=== PATIENT | female | born 1990 | race American Indian/Alaskan Native ===

== ENCOUNTER 2016-06-15 17:32 | Emergency (ER) | payer SELFPAY ==
[2016-06-15 17:38] VITALS: BP 116/72
--- NOTE | 2016-06-19 00:49 | ED Elopement Review ---
ED Pt Elopement review - Call Back decision Pt Call Back Decision: Pt to F/U with PMD
== END 2016-06-15 23:40 | disposition left against medical advice (07) ==
LOC: ED 17:32
DX: R11.2 Nausea with vomiting, unspecified (principal); R19.7 Diarrhea, unspecified; R42 Dizziness and giddiness; R10.9 Unspecified abdominal pain; R30.0 Dysuria; Z53.21 Procedure and treatment not carried out due to patient leaving prior to being seen by health care provider

== ENCOUNTER 2016-11-08 19:56 | Emergency (ER) | payer SELFPAY ==
[2016-11-08 20:07] VITALS: BP 118/72
[2016-11-08] MEDS ORDERED: DUONEB 0.5 MG-3 MG/3 ML SOLN IH ONE (20:19)
--- NOTE | 2016-11-09 00:34 | XRay Report ---
FINAL REPORT EXAM: XR CHEST ROUTINE 2V HISTORY: asthma, SOB COMPARISON: None available. FINDINGS:: Frontal and lateral views of the chest obtained. Cardiac silhouette is within normal limits. No focal consolidation or effusion. No pneumothorax. Visualized bony thorax is grossly intact. Posterior fusion the thoracic spine. IMPRESSION:: No acute findings.
--- NOTE | 2016-11-09 00:46 | Emergency Department Report ---
ED Asthma HPI - General Chief Complaint: Adult Asthma Stated Complaint: ASTHMA Time Seen by Provider: 11/09/16 00:21 Source: patient Mode of arrival: Ambulatory Limitations: No Limitations - History of Present Illness Initial Comments: This is a 26-year-old female well-nourished with nontoxic or ill in appearance with history of asthma that complains of wheezing and difficulty breathing since 2 days ago. Patient stated that she is diagnosed with a childhood asthma. Patient states has a primary care doctor Dr. Hutchinson but has not been seeing him since 5 months due to insurance purposes. Patient stated she is out of her inhaler and will like a refill prescription for inhaler albuterol. Patient denies any chest pain, shortness of breath, numbness, tingling, fever, chills, abdominal pain, headache, nausea or vomiting. Patient denies any allergies. He stated last menstrual period 11/06/2016. MD Complaint: "asthma attack", wheezing -: Gradual, days(s) Asthma History: childhood onset, history of frequent attac Severity: mild Context: none known Associated Symptoms: none. denies: productive cough, dry cough, fever, chest pain, hemoptysis, leg edema, syncope - Related Data Current Asthma Therapy: none Home Medications Medication Instructions Recorded Confirmed Last Taken Zidovudine [Retrovir] 500 mg PO BID 04/07/13 10/30/13 10/29/13 500mg Previous Rx's Medication Instructions Recorded Last Taken Type Ondansetron [Zofran Odt] 8 mg PO Q8H PRN #12 tab.rapdis 04/08/13 10/29/13 Rx Pnv95/Ferrous Fumarate/FA 1 each PO DAILY #30 tablet 04/28/13 10/29/13 Rx [ Multivitamins Tablet] ALBUTEROL Inhaler [ProAir HFA 2 puff IH QID PRN #1 inhalation 10/30/13 Unknown Rx Inhaler] Albuterol *Only Ed* [Proventil 2.5 mg IH Q4H PRN 30 Days 10/30/13 Unknown Rx 0.5% NEBS] predniSONE [Deltasone] 40 mg PO QDAY #10 tablet 10/30/13 Unknown Rx ALBUTEROL Inhaler [ProAir HFA 2 puff IH QID PRN #1 inhalation 11/09/16 Unknown Rx Inhaler] predniSONE [Deltasone] 20 mg PO BID #20 tablet 11/09/16 Unknown Rx Allergies Allergy/AdvReac Type Severity Reaction Status Date / Time No Known Allergies Allergy Unverified 04/07/13 23:04 ED Review of Systems ROS: Stated complaint: ASTHMA Other details as noted in HPI Constitutional: denies: chills, fever Eyes: denies: eye pain, eye discharge, vision change ENT: denies: ear pain, throat pain Respiratory: denies: cough, shortness of breath, wheezing Cardiovascular: denies: chest pain, palpitations Endocrine: no symptoms reported Gastrointestinal: denies: abdominal pain, nausea, diarrhea Genitourinary: denies: urgency, dysuria, discharge Musculoskeletal: denies: back pain, joint swelling, arthralgia Skin: denies: rash, lesions Neurological: denies: headache, weakness, paresthesias Psychiatric: denies: anxiety, depression Hematological/Lymphatic: denies: easy bleeding, easy bruising ED Past Medical Hx - Past Medical History Hx Asthma: Yes Hx HIV: Yes (immunocompetent) - Surgical History Additional Surgical History: 2005, Back surgery-2006 - Social History Smoking Status: Current Some Day Smoker Substance Use Type: None - Medications Home Medications: Home Medications Medication Instructions Recorded Confirmed Last Taken Type Zidovudine [Retrovir] 500 mg PO BID 04/07/13 10/30/13 10/29/13 History 500mg Ondansetron [Zofran Odt] 8 mg PO Q8H PRN #12 tab.rapdis 04/08/13 10/30/13 Rx Pnv95/Ferrous Fumarate/FA 1 each PO DAILY #30 tablet 04/28/13 10/30/13 10/29/13 Rx [ Multivitamins Tablet] ALBUTEROL Inhaler [ProAir HFA 2 puff IH QID PRN #1 inhalation 10/30/13 Unknown Rx Inhaler] Albuterol *Only Ed* [Proventil 2.5 mg IH Q4H PRN 30 Days 10/30/13 Unknown Rx 0.5% NEBS] predniSONE [Deltasone] 40 mg PO QDAY #10 tablet 10/30/13 Unknown Rx ALBUTEROL Inhaler [ProAir HFA 2 puff IH QID PRN #1 inhalation 11/09/16 Unknown Rx Inhaler] predniSONE [Deltasone] 20 mg PO BID #20 tablet 11/09/16 Unknown Rx ED Physical Exam - General Limitations: No Limitations General appearance: alert, in no apparent distress - Head Head exam: Present: atraumatic, normocephalic, normal inspection - Eye Eye exam: Present: normal appearance, PERRL, EOMI. Absent: scleral icterus, conjunctival injection, nystagmus, periorbital swelling, periorbital tenderness Pupils: Present: normal accommodation - ENT ENT exam: Present: normal exam, normal orophraynx, mucous membranes moist, TM's normal bilaterally, normal external ear exam - Neck Neck exam: Present: normal inspection, full ROM. Absent: tenderness, meningismus, lymphadenopathy, thyromegaly - Respiratory Respiratory exam: Present: normal lung sounds bilaterally, wheezes (rashaun upper and lower lobes). Absent: respiratory distress, rales, rhonchi, stridor, chest wall tenderness, accessory muscle use, decreased breath sounds, prolonged expiratory - Cardiovascular Cardiovascular Exam: Present: regular rate, normal rhythm, normal heart sounds. Absent: bradycardia, tachycardia, irregular rhythm, systolic murmur, diastolic murmur, rubs, gallop - GI/Abdominal GI/Abdominal exam: Present: soft, normal bowel sounds. Absent: distended, tenderness, guarding, rebound, rigid, diminished bowel sounds - Rectal Rectal exam: Present: deferred - Extremities Exam Extremities exam: Present: normal inspection, full ROM, normal capillary refill. Absent: tenderness, pedal edema, joint swelling, calf tenderness - Back Exam Back exam: Present: normal inspection, full ROM. Absent: tenderness, CVA tenderness (R), CVA tenderness (L), muscle spasm, paraspinal tenderness, vertebral tenderness, rash noted - Neurological Exam Neurological exam: Present: alert, oriented X3, CN II-XII intact, normal gait - Psychiatric Psychiatric exam: Present: normal affect, normal mood - Skin Skin exam: Present: warm, dry, intact, normal color. Absent: rash ED Course Vital Signs 11/08/16 11/08/16 11/08/16 20:03 20:25 20:35 Temperature 99 F Pulse Rate 87 Pulse Rate [ 85 89 Posterior Bilateral Throughout] Respiratory 20 Rate Respiratory 20 22 Rate [Posterior Bilateral Throughout] Blood Pressure 118/72 O2 Sat by Pulse 98 Oximetry - Reevaluation(s) Reevaluation #1: 11/09/16 00:45 Patient is walking around drinking water and talking with boyfriend. No signs of distress noted. Reevaluation #2: 11/09/16 00:45 Patient stated feels much better after DuoNeb treatment in ED. ED Medical Decision Making - Medical Decision Making ED course: This is a 26-year-old female that presents with asthma exacerbation 1- patient received a chest x-ray with a normal finding dictated by provided. 2- patient was referred to a primary care doctor and was instructed to follow up in 3-5 days or if symptoms worsen return back to emergency room as soon as possible. 3 patient received several Medrol 40 mg IM as well as DuoNeb in the ED. 4- patient received prednisone and albuterol at the time of discharge. 5- at time time of discharge, the patient does not seem toxic or ill in appearance. No acute signs of distress noted. Patient agrees to discharge treatment plan of care. No further questions noted by the patient. Critical care attestation.: If time is entered above; I have spent that time in minutes in the direct care of this critically ill patient, excluding procedure time. ED Disposition Clinical Impression: Asthma exacerbation Disposition: DC-01 TO HOME OR SELFCARE Is pt being admited?: No Does the pt Need Aspirin: No Condition: Stable Instructions: Asthma (ED), Prednisone (By mouth), Albuterol (By breathing) Additional Instructions: Follow-up with your primary care doctor in 3-5 days days or if symptoms worsen return back to emergency as soon as possible. Take prednisone and albuterol as prescribed. Prescriptions: ALBUTEROL Inhaler [ProAir HFA Inhaler] 2 puff IH QID PRN #1 inhalation PRN Reason: Shortness Of Breath predniSONE [Deltasone] 20 mg PO BID #20 tablet Referrals: PRIMARY CARE, [Primary Care Provider] - 3-5 Days VERONICA ESCALANTE JR, MD [Staff Physician] - 3-5 Days [facility] [Outside] - 3-5 Days [facility] [Outside] - 3-5 Days Forms: Work/School Release Form(ED)
== END 2016-11-09 01:40 | disposition home or self-care (01) ==
LOC: ED 19:56
DX: J45.901 Unspecified asthma with (acute) exacerbation (principal); F17.200 Nicotine dependence, unspecified, uncomplicated
CPT/HCPCS: 71020; 94640; 96372; 99283; J2920

== ENCOUNTER 2017-12-17 18:07 | Emergency (ER) | payer SELFPAY ==
[2017-12-17 19:01] LABS: Bacteria,Urine 1+ /HPF (Negative); Bilirubin,Urine NEG (Negative); Blood,Urine NEG (Negative); Color,Urine Yellow (Yellow); Mucus,Urine 2+ /HPF; Protein,Urine <15 mg/dL mg/dL (Negative)
[2017-12-17 19:58] LABS: Hematocrit 38.9 % (30.3-42.9); Hemoglobin 13.4 gm/dl (10.1-14.3); Mean Corpuscular HGB Conc 35 % (30-34); Mean Corpuscular Hemoglobin 32 pg (28-32); Mean Corpuscular Volume 93 fl (79-97); Platelet Count 232 K/mm3 (140-440); Red Blood Count 4.17 M/mm3 (3.65-5.03); Red Cell Distribution Width 12.7 % (13.2-15.2)
[2017-12-17 20:14] LABS: BUN/Creatinine Ratio 11; Blood Urea Nitrogen 8 mg/dL (7-17); Calcium 9.7 mg/dL (8.4-10.2); Hemolysis Index 9
[2017-12-17] MEDS ORDERED: NACL 0.9% 1000 ML 1,000 ML IV ONE (20:28)
[2017-12-17] MEDS ORDERED: TORADOL IV ONE (20:29)
[2017-12-17] MEDS ORDERED: NORCO 5/325 PO ONE (20:29)
[2017-12-17] MEDS ORDERED: DUONEB *Not for PRN Use IH ONE (20:29)
--- NOTE | 2017-12-17 20:42 | Emergency Department Report ---
ED Chest Pain HPI - General Chief Complaint: Chest Pain Stated Complaint: SOB Time Seen by Provider: 12/17/17 20:08 Source: patient Mode of arrival: Ambulatory Limitations: No Limitations - History of Present Illness Initial Comments: 27-year-old female presents to the emergency department, dropped off by her boyfriend to be seen, with complaint of pain to the left upper back, shoulder, left-sided chest discomfort and some shortness of breath that has been going on since yesterday. The shortness of breath appears to worsen with exertion. The pain to the back and the chest also worsens with exertion or certain movements of the left arm or torso. She has not taken anything for her symptoms prior to presentation. She has a past medical history of HIV and says that she takes medications compliantly and is immunocompetent. She says that her last CD4 count was 840 a few months ago and she is followed by infectious disease. No recent travel or sick contacts at home. She has a sister who has a history of prolonged QT syndrome but no nuclear family with any history of early AK or cardiac events. - Related Data Home Medications Medication Instructions Recorded Confirmed Last Taken Lopinavir/Ritonavir [Kaletra 1 each PO DAILY 12/17/17 12/17/17 Unknown 100-25 mg Tablet] Previous Rx's Medication Instructions Recorded Last Taken Type HYDROcodone/ACETAMINOPHEN [[place] 1 each PO Q6H PRN #10 tablet 12/17/17 Unknown Rx 5-325 Tablet] Allergies Allergy/AdvReac Type Severity Reaction Status Date / Time No Known Allergies Allergy Unverified 04/07/13 23:04 Heart Score - HEART Score History: Slightly suspicious EKG: Non-specific Age: < 45 Risk factors: No known risk factors Troponin: < normal limit HEART Score: 1 - Critical Actions Critical Actions: 0-3 pts:0.9-1.7%risk of adverse cardiac event.Candidate for discharge ED Review of Systems ROS: Stated complaint: SOB Other details as noted in HPI Comment: All other systems reviewed and negative Constitutional: denies: chills, fever Eyes: denies: eye pain, eye discharge, vision change ENT: denies: ear pain, throat pain Respiratory: shortness of breath. denies: cough Cardiovascular: chest pain. denies: palpitations Gastrointestinal: denies: abdominal pain, nausea, diarrhea Genitourinary: denies: urgency, dysuria, discharge Musculoskeletal: denies: back pain, joint swelling, arthralgia Skin: denies: rash, lesions Neurological: denies: headache, weakness, paresthesias ED Past Medical Hx - Past Medical History Hx Asthma: Yes Hx HIV: Yes (immunocompetent) - Surgical History Additional Surgical History: 2005, Back surgery-2006 - Social History Smoking Status: Never Smoker Substance Use Type: None - Medications Home Medications: Home Medications Medication Instructions Recorded Confirmed Last Taken Type HYDROcodone/ACETAMINOPHEN [[place] 1 each PO Q6H PRN #10 tablet 12/17/17 Unknown Rx 5-325 Tablet] Lopinavir/Ritonavir [Kaletra 1 each PO DAILY 12/17/17 12/17/17 Unknown History 100-25 mg Tablet] ED Physical Exam - General Limitations: No Limitations - Other Other exam information: GENERAL: The patient is well-developed well-nourished. HENT: Normocephalic. Atraumatic. Patient has moist mucous membranes. EYES: Extraocular motions are intact. Pupils equal reactive to light bilaterally. NECK: Supple. Trachea is midline. CHEST/LUNGS: Clear to auscultation. There is no respiratory distress noted. There is reproducible chest pain to palpation of the chest wall. No crepitus or deformity. HEART/CARDIOVASCULAR: Regular. There is no tachycardia. There is no murmur. ABDOMEN: Abdomen is soft, nontender. Patient has normal bowel sounds. There is no abdominal distention. SKIN: Skin is warm and dry. NEURO: The patient is awake, alert, and oriented. The patient is cooperative. The patient has no focal neurologic deficits. The patient has normal speech. MUSCULOSKELETAL: There is no tenderness or deformity. There is no limitation range of motion. There is no evidence of acute injury. BACK: No midline tenderness to palpation, step-off or deformity. There is some left-sided upper thoracic paraspinal tenderness to palpation. ED Course Vital Signs 12/17/17 12/17/17 12/17/17 18:10 20:30 20:46 Temperature 99.4 F Pulse Rate 56 L 52 L 60 Pulse Rate [ Anterior Bilateral Throughout] Respiratory 18 14 9 L Rate Respiratory Rate [Anterior Bilateral Throughout] Blood Pressure 114/71 115/62 115/62 Blood Pressure [Right] O2 Sat by Pulse 100 99 100 Oximetry 12/17/17 12/17/1718 20:50 21:00 21:01 Temperature Pulse Rate 54 L Pulse Rate [ 58 L 60 Anterior Bilateral Throughout] Respiratory 12 16 Rate Respiratory 20 16 Rate [Anterior Bilateral Throughout] Blood Pressure 110/62 Blood Pressure [Right] O2 Sat by Pulse 100 Oximetry 12/17/17 12/17/17 12/17/17 21:02 22:00 22:15 Temperature Pulse Rate 64 65 Pulse Rate [ Anterior Bilateral Throughout] Respiratory 16 17 16 Rate Respiratory Rate [Anterior Bilateral Throughout] Blood Pressure 110/62 114/69 Blood Pressure [Right] O2 Sat by Pulse 100 99 Oximetry 12/17/17 12/17/17 12/17/17 22:18 22:20 23:23 Temperature 98.0 F Pulse Rate 65 65 63 Pulse Rate [ Anterior Bilateral Throughout] Respiratory 16 16 13 Rate Respiratory Rate [Anterior Bilateral Throughout] Blood Pressure 114/69 Blood Pressure 122/66 [Right] O2 Sat by Pulse 100 100 100 Oximetry BERTHA score - Bertha Score Age > 65: (0) No Aspirin use within the Past 7 Days: (0) No 3 or more CAD Risk Factors: (0) No 2 or more Angina events in past 24 hrs: (1) Yes Known CAD with more than 50% Stenosis: (0) No Elevated Cardiac Markers: (0) No ST Deviation Greater than 0.5mm: (0) No BERTHA Score: 1 ED Medical Decision Making - Lab Data Result diagrams: 12/17/17 19:43 12/17/17 19:43 - EKG Data -: EKG Interpreted by Ct EKG shows normal: sinus rhythm, axis, intervals, QRS complexes, ST-T waves (T- wave inversions to the septal leads) Rate: bradycardia (54 bpm) - EKG Data When compared to previous EKG there are: previous EKG unavailable Interpretation: other (sinus bradycardia, T-wave inversions to the septal leads) - Radiology Data Radiology results: image reviewed interpreted by me: Chest x-ray does not show any acute process. There are no pleural effusions, obvious pneumonia and there is no pneumothorax. There is a large amount of hardware to the spine consistent with a spinal fusion. - Medical Decision Making The patient presented with some left-sided chest pain, left-sided back pain behind the shoulder and some shortness of breath. EKG did not show any signs of ST elevation AK or dysrhythmia. Her labs have been unremarkable including negative troponins 2 and a negative d-dimer. No signs of any leukocytosis or neutropenia, no electrolyte abnormalities, renal insufficiency or glucose abnormalities. X-ray did not show any pneumonia, pleural effusions, pneumothorax, or any other acute processes. Physical exam, the patient's heart and lung sounds are normal to auscultation. She has reproducible tenderness to palpation along the chest wall. She was given a few doses of pain medication and upon reevaluation she is feeling improved. She is low on the heart score criteria. She has a BERTHA score of 1 if her pain is considered angina, and 0 if not. At this point the patient appears safe for discharge home. She has been encouraged to follow up with her primary care physician, infectious disease physician, but has also been given a referral for cardiology. She has been instructed to return to the emergency department with any worsening of her symptoms or any acute distress. She understands and agrees to the plan. Vital signs stable throughout her ED course. - Differential Diagnosis AK, pneumonia, PE, costochondritis Critical Care Time: No Critical care attestation.: If time is entered above; I have spent that time in minutes in the direct care of this critically ill patient, excluding procedure time. ED Disposition Clinical Impression: Chest wall pain Chest pain Qualifiers: Chest pain type: unspecified Qualified Code(s): R07.9 - Chest pain, unspecified Back pain Qualifiers: Back pain location: thoracic back pain Chronicity: acute Back pain laterality: left Qualified Code(s): M54.6 - Pain in thoracic spine Disposition: TO HOME OR SELFCARE Is pt being admited?: No Condition: Stable Instructions: Chest Pain (ED), Costochondritis (ED), Back Pain (ED) Additional Instructions: Please follow-up with your primary care physician in the next few days. I have given you a referral for a local supervisor metalizing, Dr. Hardwick, follow-up regarding the chest pain. Return to the emergency department with any return or worsening of your symptoms, with any acute distress. You have been prescribed a medication that is sedating and therefore should not be taken prior to driving, working, and responsible for children and in no way should be mixed with alcohol of any quantity. Prescriptions: HYDROcodone/ACETAMINOPHEN [[place] 5-325 Tablet] 1 each PO Q6H PRN #10 tablet PRN Reason: Pain , Severe (7-10) Referrals: PRIMARY CARE, [Primary Care Provider] - 2-3 Days SANJEEV HARDWICK MD [Staff Physician] - 2-3 Days Time of Disposition: 23:40
--- NOTE | 2017-12-17 21:14 | XRay Report ---
FINAL REPORT PROCEDURE: XR CHEST 1V AP TECHNIQUE: Chest radiograph anteroposterior view. CPT 37624 HISTORY: Chest pain COMPARISON: Prior chest x-ray 11/08/2016 FINDINGS: The lungs are clear. No infiltrates masses or effusions are identified. Heart size and pulmonary vasculature appear normal. Postsurgical changes are seen in the thoracic spine and upper lumbar spine from prior fusion procedure. This was present on the prior study. IMPRESSION: No evidence of acute cardiac or pulmonary process. Extensive postsurgical changes seen in the thoracic and upper lumbar spine..
[2017-12-17] MEDS ORDERED: MORPHINE IV ONE (22:26)
[2017-12-18 00:39] VITALS: BP 116/67
== END 2017-12-18 00:46 | disposition home or self-care (01) ==
LOC: ED 18:07
DX: M54.6 Pain in thoracic spine (principal); R07.89 Other chest pain; R06.02 Shortness of breath; R10.2 Pelvic and perineal pain; J45.909 Unspecified asthma, uncomplicated
CPT/HCPCS: 36415; 71045; 80048; 81001; 84484; 84702; 85027; 85379; 93005; 93010; 94640; 96374; 96375; 99284; J1885; J2270; J7030